=== PATIENT | female | born 1995 | race Caucasian/White ===

== ENCOUNTER 2018-02-07 18:40 | Outpatient (CLI) | payer MEDICAID | END 2018-02-07 22:25 | disposition home or self-care (01) | LOC: OBT 18:40 → L-D 18:44 → OBT 22:25 | DX: O26.892 Other specified pregnancy related conditions, second trimester (principal); Z3A.21 21 weeks gestation of pregnancy; R05 Cough; R11.2 Nausea with vomiting, unspecified; R19.7 Diarrhea, unspecified | CPT/HCPCS: Z7500 ==

== ENCOUNTER 2018-02-28 20:23 | Outpatient (CLI) | payer MEDICAID ==
[2018-02-28] MEDS: ACETAMINOPHEN 500 MG TAB PO (22:31)
[2018-02-28 22:53] LABS: ADD UMIC YES; UR ASCORBIC ACID NEGATIVE (NEGATIVE); UR BACTERIA FEW /HPF (NONE SEEN); UR BILIRUBIN (Dip) NEGATIVE (NEGATIVE); UR BLOOD (Dip) NEGATIVE (NEGATIVE); UR CALCIUM OXALATE CRYSTAL MODERATE /HPF (NONE SEEN); UR CLARITY SLIGHTLY CLOUDY (CLEAR); UR COLOR AMBER (YELLOW); UR GLUCOSE (Dip) NEGATIVE (NEGATIVE); UR KETONES (Dip) TRACE mg/dL (NEGATIVE); UR LEUKOCYTE ESTERASE (Dip) 1+ Leu/ul (NEGATIVE); UR MUCUS MANY /HPF (NONE SEEN); UR NITRITE (Dip) NEGATIVE (NEGATIVE); UR RBC 3 /HPF (0-5); UR SPECIFIC GRAVITY (Dip) 1.035 (1.003-1.030); UR SQUAMOUS EPITHELIAL CELL MODERATE /HPF (FEW); UR TOTAL PROTEIN (Dip) 1+ mg/dl (NEGATIVE); UR UROBILINOGEN (Dip) 1+ mg/dL (NEGATIVE); UR WBC 19 /HPF (0-5)
== END 2018-02-28 22:44 | disposition home or self-care (01) ==
LOC: OBT 20:23 → L-D 20:25 → OBT 22:44
DX: O26.892 Other specified pregnancy related conditions, second trimester (principal); Z3A.24 24 weeks gestation of pregnancy; M54.9 Dorsalgia, unspecified; R51 Headache; R30.0 Dysuria; R35.0 Frequency of micturition
CPT/HCPCS: 81001; 87086

== ENCOUNTER 2018-04-01 18:56 | Outpatient (CLI) | payer MEDICAID ==
[2018-04-01 21:58] LABS: ADD UMIC YES; UR ASCORBIC ACID NEGATIVE (NEGATIVE); UR BACTERIA FEW /HPF (NONE SEEN); UR BILIRUBIN (Dip) NEGATIVE (NEGATIVE); UR BLOOD (Dip) NEGATIVE (NEGATIVE); UR CLARITY CLOUDY (CLEAR); UR COLOR AMBER (YELLOW); UR GLUCOSE (Dip) NEGATIVE (NEGATIVE); UR KETONES (Dip) NEGATIVE (NEGATIVE); UR LEUKOCYTE ESTERASE (Dip) 3+ Leu/ul (NEGATIVE); UR MUCUS MODERATE /HPF (NONE SEEN); UR NITRITE (Dip) NEGATIVE (NEGATIVE); UR RBC 7 /HPF (0-5); UR SPECIFIC GRAVITY (Dip) 1.027 (1.003-1.030); UR SQUAMOUS EPITHELIAL CELL MANY /HPF (FEW); UR TOTAL PROTEIN (Dip) 1+ mg/dl (NEGATIVE); UR UROBILINOGEN (Dip) 2+ mg/dL (NEGATIVE); UR WBC 53 /HPF (0-5)
[2018-04-01 22:06] LABS: RUPTURE FETAL MEMBRANES NEGATIVE (NEGATIVE)
== END 2018-04-02 | disposition home or self-care (01) ==
LOC: OBT 18:56 → L-D 18:58
DX: O47.03 False labor before 37 completed weeks of gestation, third trimester (principal); Z3A.28 28 weeks gestation of pregnancy
CPT/HCPCS: 76815; 76817; 76818; 81001; 84112; 87081; 87086

== ENCOUNTER 2018-05-20 19:04 | Inpatient (IN) | payer MEDICAID ==
[2018-05-20 21:12] LABS: ADD MAN DIFF? NO
[2018-05-20 21:14] LABS: WHITE BLOOD COUNT 11.9 10^3/ul (4.8-10.8)
[2018-05-20 21:14] LABS: BASOPHILS % 0.2 % (0.0-2.0); EOSINOPHILS # 0.1 10^3/ul (0.0-0.5); EOSINOPHILS % 0.7 % (0.0-7.0); HEMOGLOBIN 11.4 g/dl (12.0-16.0); LYMPHOCYTES # 2.2 10^3/ul (0.8-2.9); LYMPHOCYTES % 18.1 % (15.0-51.0); MEAN CORPUSCULAR HGB CONC 32.6 g/dl (32.0-37.0); MEAN PLATELET VOLUME 9.6 fl (7.4-10.4); MONOCYTE # 0.6 10^3/ul (0.3-0.9); MONOCYTES % 4.7 % (0.0-11.0); NEUTROPHILS % 75.5 % (39.0-77.0); PLATELET COUNT 293 10^3/UL (140-415); RED BLOOD COUNT 4.07 10^6/ul (4.20-5.40); RED CELL DISTRIBUTION WIDTH 14.8 % (11.5-14.5)
[2018-05-20 21:37] LABS: ALANINE AMINOTRANSFERASE 214 IU/L (13-69); ALBUMIN 3.3 g/dl (3.3-4.9); ALBUMIN/GLOBULIN RATIO 0.97; ALKALINE PHOSPHATASE 130 IU/L (42-121); ANION GAP 11 (5-13); ASPARTATE AMINO TRANSFERASE 115 IU/L (15-46); BILIRUBIN,INDIRECT 0.3 mg/dl (0-1.1); BILIRUBIN,TOTAL 0.3 mg/dl (0.2-1.3); BLOOD UREA NITROGEN 7 mg/dl (7-20); CALCIUM 9.3 mg/dl (8.4-10.2); CARBON DIOXIDE 25 mmol/L (21-31); CHLORIDE 105 mmol/L (97-110); CREATININE 0.57 mg/dl (0.44-1.00); Estimated GFR > 60 mL/min (>60); GLUCOSE 117 mg/dl (70-220); SODIUM 141 mmol/L (135-144); TOTAL PROTEIN 6.7 g/dl (6.1-8.1)
[2018-05-20 21:43] LABS: ADD UMIC YES; UR ASCORBIC ACID NEGATIVE (NEGATIVE); UR BACTERIA FEW /HPF (NONE SEEN); UR BILIRUBIN (Dip) NEGATIVE (NEGATIVE); UR BLOOD (Dip) 2+ mg/dL (NEGATIVE); UR CLARITY SLIGHTLY CLOUDY (CLEAR); UR COLOR AMBER (YELLOW); UR GLUCOSE (Dip) NEGATIVE (NEGATIVE); UR KETONES (Dip) NEGATIVE (NEGATIVE); UR LEUKOCYTE ESTERASE (Dip) 3+ Leu/ul (NEGATIVE); UR MUCUS MODERATE /HPF (NONE SEEN); UR NITRITE (Dip) NEGATIVE (NEGATIVE); UR RBC 17 /HPF (0-5); UR SPECIFIC GRAVITY (Dip) 1.028 (1.003-1.030); UR SQUAMOUS EPITHELIAL CELL FEW /HPF (FEW); UR TOTAL PROTEIN (Dip) NEGATIVE (NEGATIVE); UR UROBILINOGEN (Dip) 1+ mg/dL (NEGATIVE); UR WBC 72 /HPF (0-5)
[2018-05-21] MEDS ORDERED: ONDANSETRON 4 MG INJ IV (00:30)
[2018-05-21] MEDS ORDERED: ACETAMINOPHEN 325 MG TAB PO (00:30)
[2018-05-21 01:35] LABS: HAAIG REFLEX REFLEX FILED
[2018-05-21] MEDS: SOD CHLORIDE 0.9% 1,000 ML IV ×2 (01:51→10:30)
[2018-05-21] MEDS: CEFTRIAXONE 1 GM/50 ML (PMX) 50 ML IVPB (01:52)
[2018-05-21 02:59] LABS: HEPATITIS B SURFACE ANTIGEN NEGATIVE (NEGATIVE)
[2018-05-21 03:27] LABS: HEPATITIS B CORE ANTIBODY NEGATIVE (NEGATIVE); HEPATITIS C VIRAL ANTIBODY NEGATIVE (NEGATIVE)
[2018-05-21 08:22] LABS: ADD MAN DIFF? NO
[2018-05-21 08:31] LABS: WHITE BLOOD COUNT 12.1 10^3/ul (4.8-10.8)
[2018-05-21 08:31] LABS: BASOPHILS % 0.2 % (0.0-2.0); EOSINOPHILS # 0.1 10^3/ul (0.0-0.5); EOSINOPHILS % 0.8 % (0.0-7.0); HEMATOCRIT 35.2 % (37.0-47.0); HEMOGLOBIN 11.3 g/dl (12.0-16.0); LYMPHOCYTES # 2.4 10^3/ul (0.8-2.9); LYMPHOCYTES % 19.4 % (15.0-51.0); MEAN CORPUSCULAR HEMOGLOBIN 27.8 pg (29.0-33.0); MEAN CORPUSCULAR HGB CONC 32.1 g/dl (32.0-37.0); MEAN CORPUSCULAR VOLUME 86.5 fl (82.0-101.0); MEAN PLATELET VOLUME 9.9 fl (7.4-10.4); MONOCYTE # 0.7 10^3/ul (0.3-0.9); MONOCYTES % 5.8 % (0.0-11.0); NEUTROPHIL # 8.9 10^3/ul (1.6-7.5); NEUTROPHILS % 73.3 % (39.0-77.0); PLATELET COUNT 293 10^3/UL (140-415); RED BLOOD COUNT 4.07 10^6/ul (4.20-5.40)
[2018-05-21 08:53] LABS: ALANINE AMINOTRANSFERASE 218 IU/L (13-69); ALBUMIN 3.4 g/dl (3.3-4.9); ALBUMIN/GLOBULIN RATIO 1.09; ALKALINE PHOSPHATASE 121 IU/L (42-121); AMYLASE 34 U/L (11-123); ANION GAP 10 (5-13); ASPARTATE AMINO TRANSFERASE 107 IU/L (15-46); BILIRUBIN,INDIRECT 0.2 mg/dl (0-1.1); BILIRUBIN,TOTAL 0.2 mg/dl (0.2-1.3); BLOOD UREA NITROGEN 10 mg/dl (7-20); CALCIUM 8.7 mg/dl (8.4-10.2); CARBON DIOXIDE 25 mmol/L (21-31); CHLORIDE 103 mmol/L (97-110); CREATININE 0.56 mg/dl (0.44-1.00); Estimated GFR > 60 mL/min (>60); GLUCOSE 100 mg/dl (70-220); LIPASE 36 U/L (23-300); POTASSIUM 4.2 mmol/L (3.5-5.1); SODIUM 138 mmol/L (135-144); TOTAL PROTEIN 6.5 g/dl (6.1-8.1)
[2018-05-21] MEDS: PRENATAL VITAMIN PO (10:31)
[2018-05-21] MEDS: DOCUSATE SODIUM 100 MG CAP PO (10:31)
[2018-05-21] MEDS ORDERED: CEPHALEXIN 500 MG CAP PO (18:00)
[2018-05-27 17:01] LABS: CHENODEOXYCHOLIC ACID <0.5 umol/L (< OR = 3.1); CHOLIC ACID 2.8 umol/L (< OR = 1.8); DEOXYCHOLIC ACID <0.5 umol/L (< OR = 2.4); TOTAL BILE ACIDS 2.8 umol/L (< OR = 6.8)
== END 2018-05-21 18:55 | disposition home or self-care (01) | DRG 833 ==
LOC: OBT 19:04 → L-D 19:05 → PP1 05-21 02:57
DX: O23.03 Infections of kidney in pregnancy, third trimester (principal); O99.213 Obesity complicating pregnancy, third trimester; E66.01 Morbid (severe) obesity due to excess calories; Z3A.35 35 weeks gestation of pregnancy; R94.5 Abnormal results of liver function studies
CPT/HCPCS: 36415; 76815; 76818; 80053; 81001; 82150; 83690; 83789; 85025; 86704; 86709; 86803; 87086; 87340; 96365; 96366

== ENCOUNTER → 2018-05-23 | Outpatient (CLI) | payer MEDICAID | END | disposition home or self-care (01) | LOC: U/S 12:40 | DX: O26.899 Other specified pregnancy related conditions, unspecified trimester (principal); R74.8 Abnormal levels of other serum enzymes; Z3A.00 Weeks of gestation of pregnancy not specified | CPT/HCPCS: 76700 ==

== ENCOUNTER 2018-06-05 11:59 | Outpatient (CLI) | payer MEDICAID ==
[2018-06-05 12:55] LABS: RUPTURE FETAL MEMBRANES NEGATIVE (NEGATIVE)
[2018-06-05 13:03] LABS: ALANINE AMINOTRANSFERASE 42 IU/L (13-69); ALBUMIN 3.4 g/dl (3.3-4.9); ALBUMIN/GLOBULIN RATIO 0.94; ALKALINE PHOSPHATASE 147 IU/L (42-121); ANION GAP 9 (5-13); ASPARTATE AMINO TRANSFERASE 29 IU/L (15-46); BILIRUBIN,INDIRECT 0.1 mg/dl (0-1.1); BILIRUBIN,TOTAL 0.1 mg/dl (0.2-1.3); BLOOD UREA NITROGEN 10 mg/dl (7-20); CALCIUM 8.7 mg/dl (8.4-10.2); CARBON DIOXIDE 22 mmol/L (21-31); CHLORIDE 106 mmol/L (97-110); CREATININE 0.47 mg/dl (0.44-1.00); Estimated GFR > 60 mL/min (>60); GLUCOSE 103 mg/dl (70-220); POTASSIUM 4.1 mmol/L (3.5-5.1); SODIUM 137 mmol/L (135-144)
== END 2018-06-05 15:05 | disposition home or self-care (01) ==
LOC: OBT 11:59 → L-D 11:59 → OBT 15:05
DX: O42.913 Preterm premature rupture of membranes, unspecified as to length of time between rupture and onset of labor, third trimester (principal); Z3A.35 35 weeks gestation of pregnancy
CPT/HCPCS: 76815; 76818; 80053; 84112

== ENCOUNTER 2018-06-10 21:15 | Outpatient (CLI) | payer MEDICAID ==
[2018-06-10] MEDS: TERBUTALINE 1 MG/ML INJ SC (22:17)
[2018-06-10] MEDS: LACTATED RINGER'S 1,000 ML IV* (22:31)
[2018-06-10 23:00] LABS: ADD UMIC YES; UR ASCORBIC ACID NEGATIVE (NEGATIVE); UR BACTERIA FEW /HPF (NONE SEEN); UR BILIRUBIN (Dip) NEGATIVE (NEGATIVE); UR BLOOD (Dip) 3+ mg/dL (NEGATIVE); UR CLARITY SLIGHTLY CLOUDY (CLEAR); UR COLOR YELLOW (YELLOW); UR GLUCOSE (Dip) NEGATIVE (NEGATIVE); UR KETONES (Dip) NEGATIVE (NEGATIVE); UR LEUKOCYTE ESTERASE (Dip) 3+ Leu/ul (NEGATIVE); UR MUCUS FEW /HPF (NONE SEEN); UR NITRITE (Dip) NEGATIVE (NEGATIVE); UR RBC 180 /HPF (0-5); UR SPECIFIC GRAVITY (Dip) 1.025 (1.003-1.030); UR SQUAMOUS EPITHELIAL CELL MANY /HPF (FEW); UR TOTAL PROTEIN (Dip) NEGATIVE (NEGATIVE); UR UROBILINOGEN (Dip) 1+ mg/dL (NEGATIVE); UR WBC 64 /HPF (0-5)
== END 2018-06-11 01:55 | disposition left against medical advice (07) ==
LOC: OBT 21:15 → L-D 21:16
DX: O26.853 Spotting complicating pregnancy, third trimester (principal); O62.9 Abnormality of forces of labor, unspecified; Z3A.36 36 weeks gestation of pregnancy
CPT/HCPCS: 81001; 87086; 96360; 96361; 96372

== ENCOUNTER 2018-06-23 18:19 | Outpatient (CLI) | payer MEDICAID | END 2018-06-23 21:23 | disposition home or self-care (01) | LOC: OBT 18:19 → L-D 18:20 → OBT 21:23 | DX: O36.63X0 Maternal care for excessive fetal growth, third trimester, not applicable or unspecified (principal); Z3A.38 38 weeks gestation of pregnancy | CPT/HCPCS: 76818 ==

== ENCOUNTER 2018-06-27 15:09 | Outpatient (CLI) | payer MEDICAID | END 2018-06-27 16:29 | disposition home or self-care (01) | LOC: OBT 15:09 → L-D 15:10 → OBT 16:29 | DX: O40.3XX0 Polyhydramnios, third trimester, not applicable or unspecified (principal); Z3A.38 38 weeks gestation of pregnancy | CPT/HCPCS: 76815; 76818 ==

== ENCOUNTER 2018-06-29 09:06 | Inpatient (IN) | payer MEDICAID ==
[2018-06-29] MEDS ORDERED: METHYLERGONOVINE 0.2 MG INJ IM (10:00)
[2018-06-29] MEDS ORDERED: OXYTOCIN 30 UNITS/LR 500 ML IV (10:00)
[2018-06-29] MEDS ORDERED: CARBOPROST 250 MCG INJ IM (10:00)
[2018-06-29] MEDS ORDERED: MISOPROSTOL 200 MCG TAB PR (10:00)
[2018-06-29 10:09] LABS: ADD MAN DIFF? NO
[2018-06-29 10:11] LABS: BASOPHILS % 0.2 % (0.0-2.0); EOSINOPHILS # 0.1 10^3/ul (0.0-0.5); EOSINOPHILS % 0.9 % (0.0-7.0); HEMATOCRIT 31.4 % (37.0-47.0); HEMOGLOBIN 9.9 g/dl (12.0-16.0); LYMPHOCYTES # 1.9 10^3/ul (0.8-2.9); LYMPHOCYTES % 19.4 % (15.0-51.0); MEAN CORPUSCULAR HEMOGLOBIN 26.6 pg (29.0-33.0); MEAN CORPUSCULAR HGB CONC 31.5 g/dl (32.0-37.0); MEAN CORPUSCULAR VOLUME 84.4 fl (82.0-101.0); MEAN PLATELET VOLUME 10.3 fl (7.4-10.4); MONOCYTE # 0.6 10^3/ul (0.3-0.9); MONOCYTES % 6.2 % (0.0-11.0); NEUTROPHILS % 72.7 % (39.0-77.0); PLATELET COUNT 264 10^3/UL (140-415); RED BLOOD COUNT 3.72 10^6/ul (4.20-5.40); RED CELL DISTRIBUTION WIDTH 14.5 % (11.5-14.5)
[2018-06-29 10:11] LABS: WHITE BLOOD COUNT 9.6 10^3/ul (4.8-10.8)
[2018-06-29 10:31] LABS: INR 0.89; PROTIME 12.1 Sec (11.9-14.9); PT RATIO 0.9
[2018-06-29 10:32] LABS: PARTIAL THROMBOPLASTIN TIME 26.5 Sec (23.0-35.0)
[2018-06-29] MEDS: LACTATED RINGER'S 1,000 ML IV ×4 (11:20→20:55)
[2018-06-29] MEDS: MISOPROSTOL 50 MCG CAPSULE PO ×2 (11:21→15:32)
[2018-06-29 19:16] LABS: RAPID PLASMA REAGIN NONREACTIVE (NR)
[2018-06-29] MEDS ORDERED: HYDROmorphONE 0.5 MG/0.5 ML SYG IV ×2 (21:00)
[2018-06-29] MEDS ORDERED: DIPHENHYDRAMINE 50 MG INJ IV (21:00)
[2018-06-29] MEDS ORDERED: NALOXONE (0.4 MG/ML) INJ IV (21:00)
[2018-06-30] MEDS: LACTATED RINGER'S 1,000 ML IV ×2 (01:37→08:18)
[2018-06-30] MEDS: MISOPROSTOL 50 MCG CAPSULE PO ×5 (05:30→11:00)
[2018-06-30] MEDS: OXYTOCIN 30 UNITS/LR 500 ML IV ×4 (08:24→14:33)
[2018-06-30] MEDS: ACETAMINOPHEN 500 MG TAB PO (08:43)
[2018-06-30] MEDS: FENTAnyl 2MCG/ML-ROPIV 0.2% 100 ML BAG EPI (10:30)
[2018-06-30] MEDS ORDERED: FENTAnyl 2MCG/ML-ROPIV 0.2% 100 ML BAG EPI (12:00)
[2018-06-30] MEDS ORDERED: NALOXONE (0.4 MG/ML) INJ IV (12:00)
[2018-06-30] MEDS: ONDANSETRON 4 MG INJ IV (12:39)
[2018-06-30] MEDS: MINERAL OIL LIGHT 10 ML VIAL TOP (13:00)
[2018-06-30] MEDS: LIDOCAINE 1% (MPF) 30 ML INJ INJ (13:13)
[2018-06-30] MEDS: ACETAMINOPHEN 1000MG/100ML IV 100 ML IVPB (14:35)
[2018-06-30] MEDS ORDERED: ZOLPIDEM 5 MG TAB PO (16:00)
[2018-06-30] MEDS ORDERED: OXYTOCIN 30 UNITS/LR 500 ML IV (16:00)
[2018-06-30] MEDS ORDERED: CARBOPROST 250 MCG INJ IM (16:00)
[2018-06-30] MEDS ORDERED: METHYLERGONOVINE 0.2 MG INJ IM (16:00)
[2018-06-30] MEDS: ACETAMINOPHEN 325 MG TAB PO ×2 (16:00→22:00)
[2018-06-30] MEDS ORDERED: DIBUCAINE 1% 30 GM OINT TOP (16:00)
[2018-06-30] MEDS ORDERED: MISOPROSTOL 200 MCG TAB PR (16:00)
[2018-06-30] MEDS: BENZOCAINE 20% 56 ML SPRAY TOP (16:29)
[2018-06-30] MEDS: LANOLIN HPA 1 PKT TOP (16:29)
[2018-06-30] MEDS: WITCH HAZEL/GLYCERIN PAD PR (16:29)
[2018-06-30] MEDS: CEPHALEXIN 500 MG CAP PO ×2 (17:10→23:54)
[2018-06-30] MEDS: HYDROCODONE/APAP (5/325) TAB PO ×2 (17:11→23:04)
[2018-06-30] MEDS: LACTATED RINGER'S 1,000 ML IV* ×2 (18:34→23:45)
[2018-06-30] MEDS: SENNA/DOCUSATE NA (8.6MG/50MG) TAB PO (21:15)
[2018-06-30] MEDS: MAGNESIUM HYDROXIDE 30ML CUP PO (21:15)
[2018-07-01] MEDS: HYDROCODONE/APAP (5/325) TAB PO ×2 (03:51→12:26)
[2018-07-01] MEDS: ACETAMINOPHEN 325 MG TAB PO ×4 (04:00→22:00)
[2018-07-01] MEDS: CEPHALEXIN 500 MG CAP PO ×4 (06:10→23:24)
[2018-07-01 08:08] LABS: ADD MAN DIFF? NO
[2018-07-01 08:11] LABS: WHITE BLOOD COUNT 10.8 10^3/ul (4.8-10.8)
[2018-07-01 08:11] LABS: BASOPHILS % 0.2 % (0.0-2.0); EOSINOPHILS # 0.1 10^3/ul (0.0-0.5); EOSINOPHILS % 0.8 % (0.0-7.0); HEMATOCRIT 31.8 % (37.0-47.0); HEMOGLOBIN 10.2 g/dl (12.0-16.0); LYMPHOCYTES # 2.8 10^3/ul (0.8-2.9); LYMPHOCYTES % 26.2 % (15.0-51.0); MEAN CORPUSCULAR HGB CONC 32.1 g/dl (32.0-37.0); MEAN CORPUSCULAR VOLUME 84.1 fl (82.0-101.0); MEAN PLATELET VOLUME 10.4 fl (7.4-10.4); MONOCYTE # 0.6 10^3/ul (0.3-0.9); MONOCYTES % 5.7 % (0.0-11.0); NEUTROPHIL # 7.2 10^3/ul (1.6-7.5); NEUTROPHILS % 66.6 % (39.0-77.0); PLATELET COUNT 251 10^3/UL (140-415); RED BLOOD COUNT 3.78 10^6/ul (4.20-5.40); RED CELL DISTRIBUTION WIDTH 14.8 % (11.5-14.5)
[2018-07-01] MEDS: SENNA/DOCUSATE NA (8.6MG/50MG) TAB PO ×2 (10:21→21:26)
[2018-07-01] MEDS: MAGNESIUM HYDROXIDE 30ML CUP PO ×2 (10:22→21:26)
[2018-07-01] MEDS: BENZOCAINE 20% 56 ML SPRAY TOP ×2 (10:43→23:12)
[2018-07-01] MEDS: WITCH HAZEL/GLYCERIN PAD PR ×2 (10:44→23:12)
[2018-07-01] MEDS ORDERED: VITAMIN A & D 5 GM OINT PACKET TOP (17:17)
[2018-07-01] MEDS: ACET/BUTAL/CAFF TAB PO ×2 (18:52→23:12)
[2018-07-02] MEDS: ACET/BUTAL/CAFF TAB PO ×2 (03:24→09:17)
[2018-07-02] MEDS: ACETAMINOPHEN 325 MG TAB PO ×3 (04:00→11:54)
[2018-07-02] MEDS: CEPHALEXIN 500 MG CAP PO ×2 (06:12→11:54)
[2018-07-02] MEDS: DIPHTH/TET/ACEL PERTUSS (ADULT) 0.5 ML VIAL IM* (09:00)
[2018-07-02] MEDS: MEASLES,MUMPS,RUBELLA VACCINE INJ SC* (09:00)
[2018-07-02] MEDS: VARICELLA VACCINE LIVE/PF 1,350 UNIT/0.5 ML ML SC* (09:00)
[2018-07-02] MEDS: MAGNESIUM HYDROXIDE 30ML CUP PO (09:17)
[2018-07-02] MEDS: SENNA/DOCUSATE NA (8.6MG/50MG) TAB PO (09:17)
[2018-07-02] MEDS: BENZOCAINE 20% 56 ML SPRAY TOP (12:29)
[2018-07-02] MEDS: WITCH HAZEL/GLYCERIN PAD PR (12:29)
== END 2018-07-02 14:45 | disposition home or self-care (01) | DRG 807 ==
LOC: PP1 06-30 15:05 → L-D 09:06
PROVIDERS: Obstetrics & Gynecology
PROC: 10E0XZZ Delivery of Products of Conception, External Approach (ICD-10-PCS; principal; 2018-06-30)
PROC: 0KQM0ZZ Repair Perineum Muscle, Open Approach (ICD-10-PCS; 2018-06-30)
DX: O99.214 Obesity complicating childbirth (principal); O36.63X0 Maternal care for excessive fetal growth, third trimester, not applicable or unspecified; E66.01 Morbid (severe) obesity due to excess calories; O70.1 Second degree perineal laceration during delivery; Z37.0 Single live birth; Z3A.39 39 weeks gestation of pregnancy
CPT/HCPCS: 62319; 85025; 85610; 85730; 86592; 86850; 86900; 86901; 90716; 99464

== ENCOUNTER → 2019-01-20 | Emergency (ER) | payer MEDICAID ==
[2019-01-20] MEDS: ONDANSETRON 4 MG INJ IV (08:23)
[2019-01-20] MEDS: SOD CHLORIDE 0.9% 1,000 ML IV (08:23)
[2019-01-20] MEDS: DEXAMETHASONE 10 MG/ML 1 ML INJ IV (08:23)
[2019-01-20] MEDS: DIPHENHYDRAMINE 50 MG INJ IV (08:23)
[2019-01-20 08:34] LABS: ADD UMIC YES; UR ASCORBIC ACID NEGATIVE (NEGATIVE); UR BILIRUBIN (Dip) NEGATIVE (NEGATIVE); UR BLOOD (Dip) NEGATIVE (NEGATIVE); UR CLARITY CLEAR (CLEAR); UR COLOR STRAW (YELLOW); UR GLUCOSE (Dip) NEGATIVE (NEGATIVE); UR KETONES (Dip) NEGATIVE (NEGATIVE); UR LEUKOCYTE ESTERASE (Dip) 1+ Leu/ul (NEGATIVE); UR MUCUS FEW /HPF (NONE SEEN); UR NITRITE (Dip) NEGATIVE (NEGATIVE); UR RBC 1 /HPF (0-5); UR SPECIFIC GRAVITY (Dip) 1.015 (1.003-1.030); UR SQUAMOUS EPITHELIAL CELL FEW /HPF (FEW); UR TOTAL PROTEIN (Dip) NEGATIVE (NEGATIVE); UR UROBILINOGEN (Dip) NEGATIVE (NEGATIVE); UR WBC 3 /HPF (0-5)
== END | disposition home or self-care (01) ==
LOC: FTE 07:45
DX: R51 Headache (principal)
CPT/HCPCS: 81001; 81025; 96361; 96374; 96375; 99284-25

== ENCOUNTER 2019-03-11 13:35 | Emergency (ER) | payer MEDICAID ==
[2019-03-11] MEDS: ACETAMINOPHEN 325 MG TAB PO (15:38)
== END 2019-03-11 16:00 | disposition home or self-care (01) ==
LOC: FTE 13:35
DX: R51 Headache (principal)
CPT/HCPCS: 99282; Z7502